=== PATIENT | female | born 1985 | race Caucasian/White ===

== ENCOUNTER 2018-11-10 23:52 | Emergency (ER) | payer MEDICAID ==
[~2018-11-10] VITALS: Ht 160 cm; Wt 83.0 kg
[2018-11-10 23:55] VITALS: Ht 160 cm; Wt 83.0 kg
[2018-11-11] MEDS ORDERED: KETOROLAC 15 MG INJ IM STA (00:15)
--- NOTE | 2018-11-11 03:25 | ERD ---
ER Documentation Chief Complaint Chief Complaint DENISE LONGO,from home,fell,c/o R back pain,lac on right back,unable to stand HPI This is a 33-year-old female with no significant past medical history who lost her balance in her bedroom and fell backwards striking her back against a bench. She sustained a superficial excoriation to the right side of her back. The patient endorses tenderness with movement at this time. The patient does not e ndorse any other trauma or injury. Despite pain in her back with movement, she does not endorse weakness or numbness or tingling to the face or extremities. She does not have any focal deficits. The patient denies feeling sick recently. The patient denies fever or chills. The patient has had no headache or vision changes. The patient does not endorse neck or back pain. The patient denies lightheadedness or dizziness. The patient has had no chest pain or trouble breathing. The patient denies nausea or vomiting. The patient denies abdominal pain. The patient denies changes to bowel movements or urination. ROS All systems reviewed and are negative except as per history of present illness. Allergies Allergies: Coded Allergies: No Known Allergy (Unverified , 11/10/18) PMhx/Soc Medical and Surgical Hx: pt denies Medical Hx, pt denies Surgical Hx History of Surgery: No Hx Neurological Disorder: No Hx Respiratory Disorders: No Hx Cardiac Disorders: No Hx Psychiatric Problems: No Hx Miscellaneous Medical Probl: No Hx Alcohol Use: No Hx Substance Use: No Hx Tobacco Use: No Smoking Status: Never smoker FmHx Family History: No diabetes Physical Exam Vitals Vital Signs Date Temp Pulse Resp B/P (MAP) Pulse Ox O2 O2 Flow FiO2 Time Delivery Rate 11/10/18 97.9 100 18 104/59 99 23:55 (74) Physical Exam Const: No apparent distress, well-developed, well-nourished Head: Normocephalic, Atraumatic Eyes: Normal Conjunctiva. Extraocular movements intact. Pupils equal, round and reactive to light ENT: Normal External Ears, Nose and Mouth. Neck: Full range of motion. No meningismus. Resp: Clear to auscultation bilaterally, No wheezes, rales or rhonchi Cardio: Regular rate and rhythm. No murmurs, rubs or gallops Abd: Soft, non tender, non distended. Normal bowel sounds Skin: No petechiae or rashes Back: Mild lumbar midline tenderness with tenderness around her 8 cm excoria sarah lesion to the right lower back. No CVA tenderness Ext: No cyanosis, or edema Neur: Awake and alert, oriented 4. Cranial nerves intact. No facial droop. Normal strength, sensation and coordination. Psych: Normal Mood and Affect Results 24 hrs Laboratory Tests Test 11/11/18 01:10 POC Beta HCG, Qualitative NEGATIVE Current Medications Medications Dose Sig/Warren Start Time Status Last (Trade) Ordered Route PRN Stop Time Admin Dose Reason Admin Ketorolac 15 mg ONCE STAT 11/11/18 DC 11/11/18 Tromethamine IM 00:15 01:12 (Toradol) 11/11/18 00:17 Procedures/MDM MDM The patient's presentation warrants further investigation. Previous medical rec ords, if available, were reviewed. IMAGING Imaging and Radiology interpretation reviewed. XR lumbar FINDINGS: Osseous structures: Lumbar vertebral body height maintained. No acute endplate fracture. No lytic or blastic lesions. Alignment: Loss of lordosis. No spondylolisthesis or spondylolysis. Minimal lumbar levoscoliosis. Disc spaces: Maintained. Visualized sacrum: Intact. Additional findings: Aortic calcified plaque absent. IMPRESSION: Loss of lordosis with minimal lumbar levoscoliosis. This may be related to muscle spasm. Electronically viewed and signed by Physician Qiana on 11/11/2018 02:58 TREATMENT/DISPOSITION The patient presents with symptoms most consistent with a muscle strain related to a mechanical ground-level fall. There is no evidence of fracture or dislocation. The patient does not have evidence of cauda equina. The patient was given a dose of Toradol in the emergency department. Bacitracin was applied to the wound. The patient does not know when her last tetanus shot was. This was provided in the emergency department as well. No emergent diagnoses were identified. At this time, I feel that the patient stable for discharge. The patient was instructed to follow-up with a primary care physician in 1-3 days. The patient will be given strict precautions with which to return to the emergency department. Prescriptions: Ibuprofen, Flexeril Disclaimer: Inadvertent spelling and grammatical errors are likely due to EHR/dictation software use and do not reflect on the overall quality of patient care. Note that the electronic time recorded on this note does not necessarily reflect the actual time of the patient encounter. Departure Diagnosis: Primary Impression: Low back strain Encounter type: initial encounter Qualified Codes: S39.012A - Strain of muscle, fascia and tendon of lower back, initial encounter Additional Impressions: Fall with no significant injury Encounter type: initial encounter Qualified Codes: W19.XXXA - Unspecified fall, initial encounter Fall from ground level Excoriation of back Encounter type: initial encounter Laterality: right Qualified Codes: S20.411A - Abrasion of right back wall of thorax, initial encounter Condition: HAKEEM Thomas MD Nov 11, 2018 03:25
[2018-11-11] MEDS ORDERED: IBUP-1542 PO (03:28)
[2018-11-11] MEDS ORDERED: CYCL5TAB PO (03:28)
[2018-11-11] MEDS ORDERED: DIPHTH/TET/ACEL PERTUSS (ADULT) 0.5 ML VIAL IM* ONE (03:30)
[2018-11-11] MEDS ORDERED: BACITRACIN 0.9 GM OINT TOP ONE (03:30)
[2018-11-11 03:40] VITALS: BP 99/45; PULSE 62; RESP 18
== END 2018-11-11 03:50 | disposition home or self-care (01) ==
LOC: E/R 23:52
DX: S39.012A Strain of muscle, fascia and tendon of lower back, initial encounter (principal); S20.411A Abrasion of right back wall of thorax, initial encounter; W01.0XXA Fall on same level from slipping, tripping and stumbling without subsequent striking against object, initial encounter; Y92.9 Unspecified place or not applicable
CPT/HCPCS: 72100; 81003; 81025; 96372; J1885; Z7502